=== PATIENT | male | born 1995 | race Caucasian/White ===

== ENCOUNTER 2016-06-18 12:57 | Emergency (ER) | payer OTHER, MEDICAID ==
[2016-06-18 14:18] LABS: BASO % 0.2 % (0.0-1.0); EOS # 0.2 K/mm3 (0.0-0.50); EOS % 0.9 % (0.0-3.0); LARGE UNSTAINED CELL # 0.3 K/mm3 (0.0-0.4); LARGE UNSTAINED CELL % 1.6 % (0.0-4.0); LYMPH # 1.4 K/mm3 (1.5-6.5); LYMPH % 7.7 % (24.0-44.0); MEAN CORPUSCULAR HEMOGLOBIN 31.1 pg (27.0-33.0); MEAN CORPUSCULAR HGB CONC 34.8 g/dl (32.0-36.5); MEAN CORPUSCULAR VOLUME 89.5 fl (80.0-96.0); MONO % 5.5 % (0.0-5.0); NEUTROPHILS # 15.8 K/mm3 (1.8-7.7); NEUTROPHILS % 84.1 % (36.0-66.0); PLATELET COUNT, AUTOMATED 271 k/mm3 (150-450); RED CELL DISTRIBUTION WIDTH 12.5 % (11.5-14.5); WHITE BLOOD COUNT 18.7 K/mm3 (4.0-10.0)
[2016-06-18] MEDS ORDERED: ONDANSETRON 4 MG ORAL DISINTEGRATING TAB (S0181) As Ordered ONE (14:24)
[2016-06-18 14:51] LABS: ALBUMIN 4.3 GM/DL (3.2-5.2); ALBUMIN/GLOBULIN RATIO 1.16 (1.00-1.93); ALKALINE PHOSPHATASE 99 U/L (45-117); ALT/SGPT 34 U/L (12-78); ANION GAP 8 MEQ/L (8-16); AST/SGOT 21 U/L (15-37); BILIRUBIN,DIRECT 0.2 MG/DL (0.0-0.2); BILIRUBIN,TOTAL 0.6 MG/DL (0.2-1.0); BLOOD UREA NITROGEN 9 MG/DL (7-18); CALCIUM LEVEL 9.3 MG/DL (8.5-10.1); CARBON DIOXIDE LEVEL 27 MEQ/L (21-32); CHLORIDE LEVEL 107 MEQ/L (98-107); CREATININE FOR GFR 0.88 MG/DL (0.70-1.30); GLOMERULAR FILTRATION RATE > 60.0 (>60); GLUCOSE, FASTING 97 MG/DL (70-105); POTASSIUM SERUM 3.9 MEQ/L (3.5-5.1); SODIUM LEVEL 142 MEQ/L (136-145)
[2016-06-18] MEDS ORDERED: MORPHINE 4 MG/ML 1ML SYRINGE As Ordered ONE (15:07)
[2016-06-18] MEDS ORDERED: ISOVUE-370 76% 100ML VIAL (Q9967) As Ordered ONE (15:48)
--- NOTE | 2016-06-18 17:25 | REP ---
CT STUDY OF THE ABDOMEN AND PELVIS WITH IV BUT WITHOUT ORAL CONTRAST: HISTORY: Diverticulitis. CT CONTRAST DOSE: 100 mL of Isovue-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 The lung bases are clear. There is no evidence of pleural effusion. The liver and the spleen are normal in size and homogeneous in texture. No adrenal lesion is seen. Gallbladder and pancreas are unremarkable. No retroperitoneal mass or adenopathy is seen. The kidneys enhance symmetrically and are morphologically intact. A normal appendix is visible in the right lower quadrant. There is no evidence of abdominal mass or abscess. Seminal vesicles, urinary bladder and prostate are unremarkable. There are one or two loops of slightly prominent small bowel in the left mid abdomen of uncertain significance. No obstructive lesion is seen. Question ileus. Bone window settings show no bony destructive lesion. IMPRESSION: Nonspecific small bowel loops in the left central abdomen, question ileus. Otherwise negative CT abdomen and pelvis. Normal appendix seen. Signed by Sumanth Cortes MD 06/18/2016 06:57 P
--- NOTE | 2016-06-18 17:32 | EDDOCDS ---
Nurse's Notes [facility] Name: Chet Eden Age: 21 yrs Sex: Male : 1995 Arrival Date: 06/18/2016 Time: 12:57 Bed I5 / M5 Private MD: Raffaele Charles Diagnosis: Nausea and vomiting-likely viral gastroenteritis;Diarrhea, unspecified Presentation: 06/18 13:06 Presenting complaint: Patient states: he has had vomiting since last night and has kcs severe abdominal pain, head hurts, chest hurts and nausea. Adult Sepsis Screening: The patient does not have new or worsening altered mentation. Patient's respiratory rate is less than 22. Systolic blood pressure is greater than 100. Patient has a qSOFA score of 0- Negative Sepsis Screen. Suicide/Homicide risk assessment- the patient denies having any suicidal and/or homicidal ideations and does not present with any other emotional, behavioral or mental health complaints. Status: Patient is not a line service attendant or dependent. Transition of care: patient was not received from another setting of care. 13:06 Acuity: [place] Level 4 kcs 13:06 Method Of Arrival: Walkin/Carried/Asstd kcs Triage Assessment: 13:07 General: Appears uncomfortable, well developed, well nourished, well groomed, Behavior kcs is cooperative, pleasant. Pain: Location: upper abdomen Pain currently is 2 out of 10 on a pain scale. At worst was 10 out of 10 on a pain scale. HIV screening NA for this visit Offered previously. Neurological: Level of Consciousness is awake, alert. Respiratory: Airway is patent Respiratory effort is even, unlabored, Respiratory pattern is regular, symmetrical. GI: Reports cramping, diarrhea, nausea, vomiting. : Denies burning with urination, inability to void. Derm: Skin is intact, is healthy with good turgor, Skin is dry, Skin is normal. Historical: - Allergies: Amoxicillin (Hives); Children's Advil (Hives); - Home Meds: 1. none - PMHx: none; - PSHx: none; - Social history: Smoking status: Patient states former smoker of tobacco. No barriers to communication noted, The patient speaks fluent Turkish. - Family history: Not pertinent. - : The pt / caregiver states he / she is not on anticoagulants. Home medication list is obtained from the patient. - Exposure Risk Screening:: None identified. Screenin:49 Screening information is obtained from the patient. Fall risk: No risks identified. mb9 Assistance ADL's: requires no assistance with activities of daily living. Abuse/DV Screen: The patient / caregiver reports he/she is: not in a situation that causes fear, pain or injury. Nutritional screening: No deficits noted. Advance Directives: There is no active DNR order. home support is adequate. Assessment: 14:49 General: Appears uncomfortable, Behavior is cooperative. Pain: Location: anterior mb9 aspect of left lateral abdomen Pain currently is 5 out of 10 on a pain scale. Respiratory: Airway is patent Respiratory effort is even, unlabored. GI: Abdomen is obese. 15:00 General: Appears uncomfortable, pt transferred to [facility] and my care attempted IV x2 mk4 without success, pt states "get someone else in here, you are done" ...pt refuses to let me attempt IV again, diffuse abd pain onset yesterday with vomiting. 16:00 General: Appears in no apparent distress, returned from CT scan no new complaints . mk4 17:30 General: Appears in no apparent distress, Behavior is appropriate for age, cooperative. srm Pain: Pain currently is 2 out of 10 on a pain scale. EENT: No deficits noted. Cardiovascular: No deficits noted. GI: Bowel sounds present X 4 quads. Abd is soft X 4 quads. Vital Signs: 12:58 BP 165 / 80; Pulse 96; Resp 20 S; Temp 98.5(O); Pulse Ox 100% on R/A; Weight 131.54 kg gr2 (R); Height 6 ft. 0 in. (182.88 cm) (R); Pain 8/10; 17:30 BP 132 / 70; Pulse 87; Resp 18; Temp 100.4(O); Pulse Ox 99% ; srm 12:58 Body Mass Index 39.33 (131.54 kg, 182.88 cm) gr2 Vitals: 12:58 Log In Time: June 18, 2016 at 12:58. gr2 ED Course: 12:58 Patient visited by Manuel De Leon. gr2 12:58 Raffaele Charles is Private Physician. gr2 12:58 Patient moved to Waiting gr2 13:01 Patient visited by Manuel De Leon. gr2 13:01 Patient moved to Pre RCE gr2 13:07 Triage Initiated kcs 13:45 Patient moved to Triage 3 mb9 13:46 Patient moved to Pre RCE ar3 13:50 [facility] ar2 13:50 Tamra Jordan MD is Attending Physician. ar2 13:50 Patient visited by Remigio Vieira PA-C. ar2 13:50 Patient moved to Triage 3 mb9 14:05 Lipase Sent. ar3 14:05 Liver Profile Sent. ar3 14:05 MED Profile Sent. ar3 14:05 CBC with Diff Sent. ar3 14:22 Patient name changed from Chet\\S\\S\\S\\Eden\\S\\ to Chet\\S\\Kostas\\S\\Eden. EDMS 14:25 [facility] Payment Agreement was scanned into [employer] and attached to record. pm4 14:31 Patient moved to TR1 ar3 14:31 Patient moved to Triage 3 ar3 14:32 Patient moved to TR1 ar3 14:48 GATS (NEGATIVE STREP SCREEN) Sent. mb9 14:49 The patient / caregiver is instructed regarding the plan of care and ED course. mb9 14:56 Patient moved to I5 / M5 bcj 15:04 Patient visited by Mercedes Lundberg RN. mk4 15:37 Inserted saline lock: 20 gauge in right antecubital area. srm 15:38 Patient visited by Mary Ramos RN. srm 16:19 Patient visited by Mercedes Lundberg RN. mk4 16:[address] mk4 16:19 Patient moved to I5 / M5 mk4 16:51 Patient visited by Mercedes Lundberg, MUNDO. mk4 17:07 Saman Giang PA is Referral Physician. ar2 17:30 Discontinued lock intact, bleeding controlled, pressure dressing applied, No srm redness/swelling at site. No procedures done that require assistance. Administered Medications: 14:34 Drug: Ondansetron ODT 4 mg [ondansetron 4 mg disintegrating tablet (1 tabs)] Route: PO; mb9 15:43 Drug: morphine 4 mg [morphine 4 mg/mL intravenous cartridge (1 mL)] Route: IVP; Site: mk4 right antecubital; 15:44 Drug: NS 0.9% 1000 ml [sodium chloride 0.9 % intravenous solution] Route: IV; Rate: mk4 bolus; Site: right antecubital; Intake: 17:30 IV: 400.00ml (NS); Total: 400.00ml. srm Order Results: Lab Order: CBC with Diff; SPEC'M 06/18/16 14:05 Test: WHITE BLOOD COUNT; Value: 18.7; Range: 4.0-10.0; Abnormal: Above high normal; Units: K/mm3; Status: F Test: RED BLOOD COUNT; Value: 4.75; Range: 4.30-6.10; Units: M/mm3; Status: F Test: HEMOGLOBIN; Value: 14.8; Range: 14.0-18.0; Units: g/dl; Status: F Test: HEMATOCRIT; Value: 42.5; Range: 42.0-52.0; Units: %; Status: F Test: MEAN CORPUSCULAR VOLUME; Value: 89.5; Range: 80.0-96.0; Units: fl; Status: F Test: MEAN CORPUSCULAR HEMOGLOBIN; Value: 31.1; Range: 27.0-33.0; Units: pg; Status: F Test: MEAN CORPUSCULAR HGB CONC; Value: 34.8; Range: 32.0-36.5; Units: g/dl; Status: F Test: RED CELL DISTRIBUTION WIDTH; Value: 12.5; Range: 11.5-14.5; Units: %; Status: F Test: PLATELET COUNT, AUTOMATED; Value: 271; Range: 150-450; Units: k/mm3; Status: F Test: NEUTROPHILS %; Value: 84.1; Range: 36.0-66.0; Abnormal: Above high normal; Units: %; Status: F Test: LYMPH %; Value: 7.7; Range: 24.0-44.0; Abnormal: Below low normal; Units: %; Status: F Test: MONO %; Value: 5.5; Range: 0.0-5.0; Abnormal: Above high normal; Units: %; Status: F Test: EOS %; Value: 0.9; Range: 0.0-3.0; Units: %; Status: F Test: BASO %; Value: 0.2; Range: 0.0-1.0; Units: %; Status: F Test: LARGE UNSTAINED CELL %; Value: 1.6; Range: 0.0-4.0; Units: %; Status: F Test: NEUTROPHILS #; Value: 15.8; Range: 1.8-7.7; Abnormal: Above high normal; Units: K/mm3; Status: F Test: LYMPH #; Value: 1.4; Range: 1.5-6.5; Abnormal: Below low normal; Units: K/mm3; Status: F Test: MONO #; Value: 1.0; Range: 0.0-0.8; Abnormal: Above high normal; Units: K/mm3; Status: F Test: EOS #; Value: 0.2; Range: 0.0-0.50; Units: K/mm3; Status: F Test: BASO #; Value: 0.0; Range: 0.0-0.2; Units: K/mm3; Status: F Test: LARGE UNSTAINED CELL #; Value: 0.3; Range: 0.0-0.4; Units: K/mm3; Status: F Lab Order: MED Profile; SPEC'M 06/18/16 14:05 Test: GLUCOSE, FASTING; Value: 97; Range: 70-105; Units: MG/DL; Status: F Test: BLOOD UREA NITROGEN; Value: 9; Range: 7-18; Units: MG/DL; Status: F Test: CREATININE FOR GFR; Value: 0.88; Range: 0.70-1.30; Units: MG/DL; Status: F Test: GLOMERULAR FILTRATION RATE; Value: > 60.0; Range: >60; Status: F Test: SODIUM LEVEL; Value: 142; Range: 136-145; Units: MEQ/L; Status: F Test: POTASSIUM SERUM; Value: 3.9; Range: 3.5-5.1; Units: MEQ/L; Status: F Test: CHLORIDE LEVEL; Value: 107; Range: 98-107; Units: MEQ/L; Status: F Test: CARBON DIOXIDE LEVEL; Value: 27; Range: 21-32; Units: MEQ/L; Status: F Test: ANION GAP; Value: 8; Range: 8-16; Units: MEQ/L; Status: F Test: CALCIUM LEVEL; Value: 9.3; Range: 8.5-10.1; Units: MG/DL; Status: F Test Note: ; Units are mL/min/1.73 m2 Chronic Kidney Disease Staging per NKF: Stage I & II GFR >=60 Normal to Mildly Decreased Stage III GFR 30-59 Moderately Decreased Stage IV GFR 15-29 Severely Decreased Stage V GFR <15 Very Little GFR Left ESRD GFR <15 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 Lab Order: Liver Profile; SPEC'M 06/18/16 14:05 Test: AST/SGOT; Value: 21; Range: 15-37; Units: U/L; Status: F Test: ALT/SGPT; Value: 34; Range: 12-78; Units: U/L; Status: F Test: ALKALINE PHOSPHATASE; Value: 99; Range: 45-117; Units: U/L; Status: F Test: BILIRUBIN,TOTAL; Value: 0.6; Range: 0.2-1.0; Units: MG/DL; Status: F Test: BILIRUBIN,DIRECT; Value: 0.2; Range: 0.0-0.2; Units: MG/DL; Status: F Test: TOTAL PROTEIN; Value: 8.0; Range: 6.4-8.2; Units: GM/DL; Status: F Test: ALBUMIN; Value: 4.3; Range: 3.2-5.2; Units: GM/DL; Status: F Test: ALBUMIN/GLOBULIN RATIO; Value: 1.16; Range: 1.00-1.93; Status: F Lab Order: Lipase; SPEC'M 06/18/16 14:05 Test: LIPASE; Value: 76; Range: 73-393; Units: U/L; Status: F Outcome: 17:07 Discharge ordered by Provider. ar2 17:30 Discharge Assessment: Patient awake, alert and oriented x 3. No cognitive and/or srm functional deficits noted. Patient verbalized understanding of disposition instructions. patient administered narcotics - yes. Pt provided with safe discharge. The following High Risk Discharge criteria are identified: None. Discharged to home ambulatory, with family. Condition: good Condition: stable. Property sent home with patient. 17:31 Discharge instructions given to patient, Instructed on discharge instructions, follow srm up and referral plans. medication usage, diet, Demonstrated understanding of instructions, medications, Pt was receptive of discharge instructions/ teaching. Prescriptions given X 1. CT Study completed. 17:31 Patient left the ED. srm Signatures: Dispatcher [employer] EDRenata Dorantes, RN RN Reagan Grace, MUNDO RN Mary Morales RN RN srm Remigio Vieira, PAStacey PA-C ar2 Sammie Neumann, ADDICTIONS COUNSELOR ASSISTANT ADDICTIONS COUNSELOR ASSISTANT ar3 Manuel De Leon gr2 Mercedes Lundberg RN RN 4 Jeremías Mujica RN RN mb9 Saman Gonzalez, Reg Reg pm4 MTDD
--- NOTE | 2016-06-18 17:32 | EDDOCDS ---
Physician Documentation [facility] Name: Chet Eden Age: 21 yrs Sex: Male : 1995 Arrival Date: 06/18/2016 Time: 12:57 Bed I5 / M5 Private MD: Raffaele Charles Disposition: 06/18/16 17:07 Discharged to Home/Self Care. Impression: Nausea and vomiting - likely viral gastroenteritis, Diarrhea, unspecified. - Condition is Stable. - Discharge Instructions: Viral Gastroenteritis. - Prescriptions for Bentyl 20 mg Oral Tablet - take 1 tablet by ORAL route every 6 hours As needed; 20 tablet. ZOFRAN ODT 4 mg - dissolve 1 tablet by ORAL route 4 times per day As needed do not chew, do not swallow whole; 10 tablet. - Medication Reconciliation, Local Pharmacy Hours form. - Follow up: Saman Giang PA; When: 2 - 3 days; Reason: Recheck today's complaints. Follow up: Emergency Department; When: As needed; Reason: Fever > 102F, Worsening of conditions. - Problem is new. - Symptoms have improved. Historical: - Allergies: Amoxicillin (Hives); Children's Advil (Hives); - Home Meds: 1. none - PMHx: none; - PSHx: none; - Social history: Smoking status: Patient states former smoker of tobacco. No barriers to communication noted, The patient speaks fluent Portuguese. - Family history: Not pertinent. - : The pt / caregiver states he / she is not on anticoagulants. Home medication list is obtained from the patient. - Exposure Risk Screening:: None identified. Vital Signs: 06/18 12:58 BP 165 / 80; Pulse 96; Resp 20 S; Temp 98.5(O); Pulse Ox 100% on R/A; Weight 131.54 kg gr2 / 290 lbs (R); Height 6 ft. 0 in. (182.88 cm) (R); Pain 8/10; 17:30 BP 132 / 70; Pulse 87; Resp 18; Temp 100.4(O); Pulse Ox 99% ; srm 12:58 Body Mass Index 39.33 (131.54 kg, 182.88 cm) gr2 MDM: 13:56 Strep Screen, Nursing ordered. ar2 13:56 Ondansetron ODT Oral Disintegrating Tablet 4 mg PO once ordered. ar2 13:56 Fluid Challenge ordered. ar2 13:57 CBC with Diff Ordered. EDMS 13:58 MED Profile Ordered. EDMS 13:58 Liver Profile Ordered. EDMS 13:58 Lipase Ordered. EDMS 14:25 Financial registration complete. pm4 14:25 [facility] Payment Agreement was scanned into [employer] and attached to record. pm4 14:43 GATS (NEGATIVE STREP SCREEN) Ordered. EDMS 14:55 CBC with Diff Reviewed. ar2 14:55 MED Profile Reviewed. ar2 14:55 Liver Profile Reviewed. ar2 14:55 Lipase Reviewed. ar2 14:56 IV Saline Lock ordered. ar2 14:59 CT ABD & PELVIS: IV Contrast Only Ordered. EDMS 14:59 NS 0.9% 1000 ml IV at bolus once ordered. ar2 14:59 morphine 4 mg IVP once ordered. ar2 Administered Medications: 14:34 Drug: Ondansetron ODT 4 mg [ondansetron 4 mg disintegrating tablet (1 tabs)] Route: PO; mb9 15:43 Drug: morphine 4 mg [morphine 4 mg/mL intravenous cartridge (1 mL)] Route: IVP; Site: mk4 right antecubital; 15:44 Drug: NS 0.9% 1000 ml [sodium chloride 0.9 % intravenous solution] Route: IV; Rate: mk4 bolus; Site: right antecubital; Signatures: Dispatcher [employer] EDMS Renata Gooden RN RN kcs Michelson, Staci, RN RN [facility] Remigio Vieira, LILY PAStacey ar2 Mercedes Lundberg RN RN mk4 Saman Gonzalez, Reg Reg pm4 Jeremías Mujica RN mb9 The chart was reviewed and I authenticate all verbal orders and agree with the evaluation and treatment provided.Attachments: 14:25 [facility] Payment Agreement pm4 MTDD
--- NOTE | 2016-06-20 18:33 | EDDOCDS ---
Physician Documentation [facility] Name: Chet Eden Age: 21 yrs Sex: Male : 1995 Arrival Date: 06/18/2016 Time: 12:57 Bed I5 / M5 Private MD: Raffaele Charles Disposition: 06/18/16 17:07 Discharged to Home/Self Care. Impression: Nausea and vomiting - likely viral gastroenteritis, Diarrhea, unspecified. - Condition is Stable. - Discharge Instructions: Viral Gastroenteritis. - Prescriptions for Bentyl 20 mg Oral Tablet - take 1 tablet by ORAL route every 6 hours As needed; 20 tablet. ZOFRAN ODT 4 mg - dissolve 1 tablet by ORAL route 4 times per day As needed do not chew, do not swallow whole; 10 tablet. - Medication Reconciliation, Local Pharmacy Hours form. - Follow up: Saman Giang PA; When: 2 - 3 days; Reason: Recheck today's complaints. Follow up: Emergency Department; When: As needed; Reason: Fever > 102F, Worsening of conditions. - Problem is new. - Symptoms have improved. Historical: - Allergies: Amoxicillin (Hives); Children's Advil (Hives); - Home Meds: 1. none - PMHx: none; - PSHx: none; - Social history: Smoking status: Patient states former smoker of tobacco. No barriers to communication noted, The patient speaks fluent French. - Family history: Not pertinent. - : The pt / caregiver states he / she is not on anticoagulants. Home medication list is obtained from the patient. - Exposure Risk Screening:: None identified. Vital Signs: 06/18 12:58 BP 165 / 80; Pulse 96; Resp 20 S; Temp 98.5(O); Pulse Ox 100% on R/A; Weight 131.54 kg gr2 / 290 lbs (R); Height 6 ft. 0 in. (182.88 cm) (R); Pain 8/10; 17:30 BP 132 / 70; Pulse 87; Resp 18; Temp 100.4(O); Pulse Ox 99% ; srm 12:58 Body Mass Index 39.33 (131.54 kg, 182.88 cm) gr2 MDM: 13:56 Strep Screen, Nursing ordered. ar2 13:56 Ondansetron ODT Oral Disintegrating Tablet 4 mg PO once ordered. ar2 13:56 Fluid Challenge ordered. ar2 13:57 CBC with Diff Ordered. EDMS 13:58 MED Profile Ordered. EDMS 13:58 Liver Profile Ordered. EDMS 13:58 Lipase Ordered. EDMS 14:25 Financial registration complete. pm4 14:25 [facility] Payment Agreement was scanned into [employer] and attached to record. pm4 14:43 GATS (NEGATIVE STREP SCREEN) Ordered. EDMS 14:55 CBC with Diff Reviewed. ar2 14:55 MED Profile Reviewed. ar2 14:55 Liver Profile Reviewed. ar2 14:55 Lipase Reviewed. ar2 14:56 IV Saline Lock ordered. ar2 14:59 CT ABD & PELVIS: IV Contrast Only Ordered. EDMS 14:59 NS 0.9% 1000 ml IV at bolus once ordered. ar2 14:59 morphine 4 mg IVP once ordered. ar2 06/19 11:07 T-Sheet-- Draft Copy was scanned into [employer] and attached to record. gb 11:07 Radiology Report was scanned into [employer] and attached to record. gb Administered Medications: 06/18 14:34 Drug: Ondansetron ODT 4 mg [ondansetron 4 mg disintegrating tablet (1 tabs)] Route: PO; mb9 15:43 Drug: morphine 4 mg [morphine 4 mg/mL intravenous cartridge (1 mL)] Route: IVP; Site: mk4 right antecubital; 15:44 Drug: NS 0.9% 1000 ml [sodium chloride 0.9 % intravenous solution] Route: IV; Rate: mk4 bolus; Site: right antecubital; Signatures: Dispatcher [employer] EDMS Renata Gooden RN RN [facility] Mary Ramos RN RN [facility] Elenita Velazquez, Reg Reg gb Remigio Vieira, PAStacey PAStacey ar2 Mercedes Lundberg RN RN mk4 Saman Gonzalez, Reg Reg pm4 Jeremías Mujica RN mb9 The chart was reviewed and I authenticate all verbal orders and agree with the evaluation and treatment provided.Attachments: 14:25 [facility] Payment Agreement pm4 06/19 11:07 T-Sheet-- Draft Copy gb Chart Complete MTDD
--- NOTE | 2016-06-20 18:33 | EDDOCDS ---
Physician Documentation [facility] Name: Chet Eden Age: 21 yrs Sex: Male : 1995 Arrival Date: 06/18/2016 Time: 12:57 Bed I5 / M5 Private MD: Raffaele Charles Disposition: 06/18/16 17:07 Discharged to Home/Self Care. Impression: Nausea and vomiting - likely viral gastroenteritis, Diarrhea, unspecified. - Condition is Stable. - Discharge Instructions: Viral Gastroenteritis. - Prescriptions for Bentyl 20 mg Oral Tablet - take 1 tablet by ORAL route every 6 hours As needed; 20 tablet. ZOFRAN ODT 4 mg - dissolve 1 tablet by ORAL route 4 times per day As needed do not chew, do not swallow whole; 10 tablet. - Medication Reconciliation, Local Pharmacy Hours form. - Follow up: Saman Giang PA; When: 2 - 3 days; Reason: Recheck today's complaints. Follow up: Emergency Department; When: As needed; Reason: Fever > 102F, Worsening of conditions. - Problem is new. - Symptoms have improved. Historical: - Allergies: Amoxicillin (Hives); Children's Advil (Hives); - Home Meds: 1. none - PMHx: none; - PSHx: none; - Social history: Smoking status: Patient states former smoker of tobacco. No barriers to communication noted, The patient speaks fluent French. - Family history: Not pertinent. - : The pt / caregiver states he / she is not on anticoagulants. Home medication list is obtained from the patient. - Exposure Risk Screening:: None identified. Vital Signs: 06/18 12:58 BP 165 / 80; Pulse 96; Resp 20 S; Temp 98.5(O); Pulse Ox 100% on R/A; Weight 131.54 kg gr2 / 290 lbs (R); Height 6 ft. 0 in. (182.88 cm) (R); Pain 8/10; 17:30 BP 132 / 70; Pulse 87; Resp 18; Temp 100.4(O); Pulse Ox 99% ; srm 12:58 Body Mass Index 39.33 (131.54 kg, 182.88 cm) gr2 MDM: 13:56 Strep Screen, Nursing ordered. ar2 13:56 Ondansetron ODT Oral Disintegrating Tablet 4 mg PO once ordered. ar2 13:56 Fluid Challenge ordered. ar2 13:57 CBC with Diff Ordered. EDMS 13:58 MED Profile Ordered. EDMS 13:58 Liver Profile Ordered. EDMS 13:58 Lipase Ordered. EDMS 14:25 Financial registration complete. pm4 14:25 [facility] Payment Agreement was scanned into [employer] and attached to record. pm4 14:43 GATS (NEGATIVE STREP SCREEN) Ordered. EDMS 14:55 CBC with Diff Reviewed. ar2 14:55 MED Profile Reviewed. ar2 14:55 Liver Profile Reviewed. ar2 14:55 Lipase Reviewed. ar2 14:56 IV Saline Lock ordered. ar2 14:59 CT ABD & PELVIS: IV Contrast Only Ordered. EDMS 14:59 NS 0.9% 1000 ml IV at bolus once ordered. ar2 14:59 morphine 4 mg IVP once ordered. ar2 06/19 11:07 T-Sheet-- Draft Copy was scanned into [employer] and attached to record. gb 11:07 Radiology Report was scanned into [employer] and attached to record. gb Administered Medications: 06/18 14:34 Drug: Ondansetron ODT 4 mg [ondansetron 4 mg disintegrating tablet (1 tabs)] Route: PO; mb9 15:43 Drug: morphine 4 mg [morphine 4 mg/mL intravenous cartridge (1 mL)] Route: IVP; Site: mk4 right antecubital; 15:44 Drug: NS 0.9% 1000 ml [sodium chloride 0.9 % intravenous solution] Route: IV; Rate: mk4 bolus; Site: right antecubital; Signatures: Dispatcher [employer] EDMS Renata Gooden RN RN [facility] Mary Ramos RN RN [facility] Elenita Velazquez, Reg Reg gb Remigio Vieira, PAStacey PAStacey ar2 Mercedes Lundberg RN RN mk4 Saman Gonzalez, Reg Reg pm4 Jeremías Mujica RN mb9 The chart was reviewed and I authenticate all verbal orders and agree with the evaluation and treatment provided.Attachments: 14:25 [facility] Payment Agreement pm4 06/19 11:07 T-Sheet-- Draft Copy gb Chart Complete MTDD
--- NOTE | 2016-06-20 18:33 | EDDOCDS ---
Nurse's Notes [facility] Name: Chet Eden Age: 21 yrs Sex: Male : 1995 Arrival Date: 06/18/2016 Time: 12:57 Bed I5 / M5 Private MD: Raffaele Charles Diagnosis: Nausea and vomiting-likely viral gastroenteritis;Diarrhea, unspecified Presentation: 06/18 13:06 Presenting complaint: Patient states: he has had vomiting since last night and has kcs severe abdominal pain, head hurts, chest hurts and nausea. Adult Sepsis Screening: The patient does not have new or worsening altered mentation. Patient's respiratory rate is less than 22. Systolic blood pressure is greater than 100. Patient has a qSOFA score of 0- Negative Sepsis Screen. Suicide/Homicide risk assessment- the patient denies having any suicidal and/or homicidal ideations and does not present with any other emotional, behavioral or mental health complaints. Status: Patient is not a hvac/r service technician or dependent. Transition of care: patient was not received from another setting of care. 13:06 Acuity: [place] Level 4 kcs 13:06 Method Of Arrival: Walkin/Carried/Asstd kcs Triage Assessment: 13:07 General: Appears uncomfortable, well developed, well nourished, well groomed, Behavior kcs is cooperative, pleasant. Pain: Location: upper abdomen Pain currently is 2 out of 10 on a pain scale. At worst was 10 out of 10 on a pain scale. HIV screening NA for this visit Offered previously. Neurological: Level of Consciousness is awake, alert. Respiratory: Airway is patent Respiratory effort is even, unlabored, Respiratory pattern is regular, symmetrical. GI: Reports cramping, diarrhea, nausea, vomiting. : Denies burning with urination, inability to void. Derm: Skin is intact, is healthy with good turgor, Skin is dry, Skin is normal. Historical: - Allergies: Amoxicillin (Hives); Children's Advil (Hives); - Home Meds: 1. none - PMHx: none; - PSHx: none; - Social history: Smoking status: Patient states former smoker of tobacco. No barriers to communication noted, The patient speaks fluent Telugu. - Family history: Not pertinent. - : The pt / caregiver states he / she is not on anticoagulants. Home medication list is obtained from the patient. - Exposure Risk Screening:: None identified. Screenin:49 Screening information is obtained from the patient. Fall risk: No risks identified. mb9 Assistance ADL's: requires no assistance with activities of daily living. Abuse/DV Screen: The patient / caregiver reports he/she is: not in a situation that causes fear, pain or injury. Nutritional screening: No deficits noted. Advance Directives: There is no active DNR order. home support is adequate. Assessment: 14:49 General: Appears uncomfortable, Behavior is cooperative. Pain: Location: anterior mb9 aspect of left lateral abdomen Pain currently is 5 out of 10 on a pain scale. Respiratory: Airway is patent Respiratory effort is even, unlabored. GI: Abdomen is obese. 15:00 General: Appears uncomfortable, pt transferred to [facility] and my care attempted IV x2 mk4 without success, pt states "get someone else in here, you are done" ...pt refuses to let me attempt IV again, diffuse abd pain onset yesterday with vomiting. 16:00 General: Appears in no apparent distress, returned from CT scan no new complaints . mk4 17:30 General: Appears in no apparent distress, Behavior is appropriate for age, cooperative. srm Pain: Pain currently is 2 out of 10 on a pain scale. EENT: No deficits noted. Cardiovascular: No deficits noted. GI: Bowel sounds present X 4 quads. Abd is soft X 4 quads. Vital Signs: 12:58 BP 165 / 80; Pulse 96; Resp 20 S; Temp 98.5(O); Pulse Ox 100% on R/A; Weight 131.54 kg gr2 (R); Height 6 ft. 0 in. (182.88 cm) (R); Pain 8/10; 17:30 BP 132 / 70; Pulse 87; Resp 18; Temp 100.4(O); Pulse Ox 99% ; srm 12:58 Body Mass Index 39.33 (131.54 kg, 182.88 cm) gr2 Vitals: 12:58 Log In Time: June 18, 2016 at 12:58. gr2 ED Course: 12:58 Patient visited by Manuel De Leon. gr2 12:58 Raffaele Charles is Private Physician. gr2 12:58 Patient moved to Waiting gr2 13:01 Patient visited by Manuel De Leon. gr2 13:01 Patient moved to Pre RCE gr2 13:07 Triage Initiated kcs 13:45 Patient moved to Triage 3 mb9 13:46 Patient moved to Pre RCE ar3 13:50 Remigio Vieira PA-C is PHCP. ar2 13:50 Tamra Jordan MD is Attending Physician. ar2 13:50 Patient visited by Remigio Vieira PA-C. ar2 13:50 Patient moved to Triage 3 mb9 14:05 Lipase Sent. ar3 14:05 Liver Profile Sent. ar3 14:05 MED Profile Sent. ar3 14:05 CBC with Diff Sent. ar3 14:22 Patient name changed from Chet\\S\\S\\S\\Eden\\S\\ to Chet\\S\\Kostas\\S\\Eden. EDMS 14:25 [facility] Payment Agreement was scanned into [employer] and attached to record. pm4 14:31 Patient moved to TR1 ar3 14:31 Patient moved to Triage 3 ar3 14:32 Patient moved to TR1 ar3 14:48 GATS (NEGATIVE STREP SCREEN) Sent. mb9 14:49 The patient / caregiver is instructed regarding the plan of care and ED course. mb9 14:56 Patient moved to I5 / M5 bcj 15:04 Patient visited by Mercedse Lundberg RN. mk4 15:37 Inserted saline lock: 20 gauge in right antecubital area. srm 15:38 Patient visited by Mary Ramos, MUNDO. srm 16:19 Patient visited by Mercedes Lundberg RN. mk4 16:[address] mk4 16:19 Patient moved to I5 / M5 mk4 16:51 Patient visited by Mercedes Lundberg, RN. mk4 17:07 Saman Giang PA is Referral Physician. ar2 17:30 Discontinued lock intact, bleeding controlled, pressure dressing applied, No srm redness/swelling at site. No procedures done that require assistance. 18:10 CT ABD & PELVIS: IV Contrast Only Returned. EDMS 06/19 11:07 T-Sheet-- Draft Copy was scanned into [employer] and attached to record. gb 11:07 Radiology Report was scanned into [employer] and attached to record. gb Administered Medications: 06/18 14:34 Drug: Ondansetron ODT 4 mg [ondansetron 4 mg disintegrating tablet (1 tabs)] Route: PO; mb9 15:43 Drug: morphine 4 mg [morphine 4 mg/mL intravenous cartridge (1 mL)] Route: IVP; Site: mk4 right antecubital; 15:44 Drug: NS 0.9% 1000 ml [sodium chloride 0.9 % intravenous solution] Route: IV; Rate: mk4 bolus; Site: right antecubital; Intake: 17:30 IV: 400.00ml (NS); Total: 400.00ml. srm Order Results: Lab Order: CBC with Diff; SPEC'M 06/18/16 14:05 Test: WHITE BLOOD COUNT; Value: 18.7; Range: 4.0-10.0; Abnormal: Above high normal; Units: K/mm3; Status: F Test: RED BLOOD COUNT; Value: 4.75; Range: 4.30-6.10; Units: M/mm3; Status: F Test: HEMOGLOBIN; Value: 14.8; Range: 14.0-18.0; Units: g/dl; Status: F Test: HEMATOCRIT; Value: 42.5; Range: 42.0-52.0; Units: %; Status: F Test: MEAN CORPUSCULAR VOLUME; Value: 89.5; Range: 80.0-96.0; Units: fl; Status: F Test: MEAN CORPUSCULAR HEMOGLOBIN; Value: 31.1; Range: 27.0-33.0; Units: pg; Status: F Test: MEAN CORPUSCULAR HGB CONC; Value: 34.8; Range: 32.0-36.5; Units: g/dl; Status: F Test: RED CELL DISTRIBUTION WIDTH; Value: 12.5; Range: 11.5-14.5; Units: %; Status: F Test: PLATELET COUNT, AUTOMATED; Value: 271; Range: 150-450; Units: k/mm3; Status: F Test: NEUTROPHILS %; Value: 84.1; Range: 36.0-66.0; Abnormal: Above high normal; Units: %; Status: F Test: LYMPH %; Value: 7.7; Range: 24.0-44.0; Abnormal: Below low normal; Units: %; Status: F Test: MONO %; Value: 5.5; Range: 0.0-5.0; Abnormal: Above high normal; Units: %; Status: F Test: EOS %; Value: 0.9; Range: 0.0-3.0; Units: %; Status: F Test: BASO %; Value: 0.2; Range: 0.0-1.0; Units: %; Status: F Test: LARGE UNSTAINED CELL %; Value: 1.6; Range: 0.0-4.0; Units: %; Status: F Test: NEUTROPHILS #; Value: 15.8; Range: 1.8-7.7; Abnormal: Above high normal; Units: K/mm3; Status: F Test: LYMPH #; Value: 1.4; Range: 1.5-6.5; Abnormal: Below low normal; Units: K/mm3; Status: F Test: MONO #; Value: 1.0; Range: 0.0-0.8; Abnormal: Above high normal; Units: K/mm3; Status: F Test: EOS #; Value: 0.2; Range: 0.0-0.50; Units: K/mm3; Status: F Test: BASO #; Value: 0.0; Range: 0.0-0.2; Units: K/mm3; Status: F Test: LARGE UNSTAINED CELL #; Value: 0.3; Range: 0.0-0.4; Units: K/mm3; Status: F Lab Order: MED Profile; SPEC'M 06/18/16 14:05 Test: GLUCOSE, FASTING; Value: 97; Range: 70-105; Units: MG/DL; Status: F Test: BLOOD UREA NITROGEN; Value: 9; Range: 7-18; Units: MG/DL; Status: F Test: CREATININE FOR GFR; Value: 0.88; Range: 0.70-1.30; Units: MG/DL; Status: F Test: GLOMERULAR FILTRATION RATE; Value: > 60.0; Range: >60; Status: F Test: SODIUM LEVEL; Value: 142; Range: 136-145; Units: MEQ/L; Status: F Test: POTASSIUM SERUM; Value: 3.9; Range: 3.5-5.1; Units: MEQ/L; Status: F Test: CHLORIDE LEVEL; Value: 107; Range: 98-107; Units: MEQ/L; Status: F Test: CARBON DIOXIDE LEVEL; Value: 27; Range: 21-32; Units: MEQ/L; Status: F Test: ANION GAP; Value: 8; Range: 8-16; Units: MEQ/L; Status: F Test: CALCIUM LEVEL; Value: 9.3; Range: 8.5-10.1; Units: MG/DL; Status: F Test Note: ; Units are mL/min/1.73 m2 Chronic Kidney Disease Staging per NKF: Stage I & II GFR >=60 Normal to Mildly Decreased Stage III GFR 30-59 Moderately Decreased Stage IV GFR 15-29 Severely Decreased Stage V GFR <15 Very Little GFR Left ESRD GFR <15 on BOXING PROMOTER Lab Order: Liver Profile; SPEC'M 06/18/16 14:05 Test: AST/SGOT; Value: 21; Range: 15-37; Units: U/L; Status: F Test: ALT/SGPT; Value: 34; Range: 12-78; Units: U/L; Status: F Test: ALKALINE PHOSPHATASE; Value: 99; Range: 45-117; Units: U/L; Status: F Test: BILIRUBIN,TOTAL; Value: 0.6; Range: 0.2-1.0; Units: MG/DL; Status: F Test: BILIRUBIN,DIRECT; Value: 0.2; Range: 0.0-0.2; Units: MG/DL; Status: F Test: TOTAL PROTEIN; Value: 8.0; Range: 6.4-8.2; Units: GM/DL; Status: F Test: ALBUMIN; Value: 4.3; Range: 3.2-5.2; Units: GM/DL; Status: F Test: ALBUMIN/GLOBULIN RATIO; Value: 1.16; Range: 1.00-1.93; Status: F Lab Order: Lipase; SPEC'M 06/18/16 14:05 Test: LIPASE; Value: 76; Range: 73-393; Units: U/L; Status: F Lab Order: GATS (NEGATIVE STREP SCREEN); SPEC'M 06/18/16 12:57 Test: GATS CULTURE (NEG STREP SCR); Value: GATS RESULT NEGATIVE FOR STREP PYOGENES (GROUP A); Status: F Radiology Order: CT ABD & PELVIS: IV Contrast Only Test: CT ABD & PELVIS: IV Contrast Only REASON FOR EXAMINATION: Diverticulitis; CT STUDY OF THE ABDOMEN AND PELVIS WITH IV BUT WITHOUT ORAL CONTRAST:; ; HISTORY: Diverticulitis.; ; CT CONTRAST DOSE: 100 mL of Isovue-370 is administered intravenously.; ; CT FINDINGS: 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 The lung bases are clear. There is no evidence of pleural effusion.; The liver and the spleen are normal in size and homogeneous in texture. No; adrenal lesion is seen. Gallbladder and pancreas are unremarkable. No; retroperitoneal mass or adenopathy is seen. The kidneys enhance symmetrically and; are morphologically intact. A normal appendix is visible in the right lower; quadrant. There is no evidence of abdominal mass or abscess. Seminal vesicles,; urinary bladder and prostate are unremarkable. There are one or two loops of; slightly prominent small bowel in the left mid abdomen of uncertain significance.; No obstructive lesion is seen. Question ileus. Bone window settings show no bony; destructive lesion.; ; IMPRESSION:; ; Nonspecific small bowel loops in the left central abdomen, question ileus.; Otherwise negative CT abdomen and pelvis. Normal appendix seen.; ; ; Signed by; Sumanth Cortes MD 06/18/2016 06:57 P; Outcome: 17:07 Discharge ordered by Provider. ar2 17:30 Discharge Assessment: Patient awake, alert and oriented x 3. No cognitive and/or srm functional deficits noted. Patient verbalized understanding of disposition instructions. patient administered narcotics - yes. Pt provided with safe discharge. The following High Risk Discharge criteria are identified: None. Discharged to home ambulatory, with family. Condition: good Condition: stable. Property sent home with patient. 17:31 Discharge instructions given to patient, Instructed on discharge instructions, follow srm up and referral plans. medication usage, diet, Demonstrated understanding of instructions, medications, Pt was receptive of discharge instructions/ teaching. Prescriptions given X 1. CT Study completed. 17:31 Patient left the ED. srm Signatures: Dispatcher [employer] EDMS Renata Gooden, Reagan Vieyra RN, RN RN bcj Michelson, Staci, RN RN srm Caroline, Elenita, Reg Reg gb Remigio Vieira, LILY PAGioC ar2 Sammie Neumann, MAYELA ASSOCIATE QUALITY ENGINEER ar3 Manuel De Leon gr2 Mercedes Lundberg RN RN mk4 Jeremías MujicaRN RN mb9 Saman Gonzalez, Reg Reg pm4 Chart Complete MTDD
== END 2016-06-18 17:31 | disposition home or self-care (01) ==
LOC: M ED 12:57
DX: A08.4 Viral intestinal infection, unspecified (principal); Z87.891 Personal history of nicotine dependence; Z88.0 Allergy status to penicillin; Z88.6 Allergy status to analgesic agent
CPT/HCPCS: 36415; 74177; 80048; 80076; 83690; 85025; 96374; 99284; Q9967

== ENCOUNTER → 2017-02-10 | Outpatient (CLI) | payer MEDICAID, OTHER | LOC: M WUC 10:21 | PROVIDERS: ATTEND Nurse Practitioner Family | DX: Z72.51 High risk heterosexual behavior (principal) ==

== ENCOUNTER → 2018-10-11 | Outpatient (REF) | payer OTHER, SELFPAY ==
[~2018-10-11] MED LIST: CLEO300C2 PO; PERC5TAB12 PO; PRED10TA2 PO
== END ==
LOC: M LAB REF 09:47
PROVIDERS: ATTEND Physician Assistant
DX: J03.90 Acute tonsillitis, unspecified (principal)

== ENCOUNTER 2018-10-15 19:16 | Emergency (ER) | payer OTHER, SELFPAY ==
[~2018-10-15] VITALS: Ht 185.4 cm; Wt 129.6 kg
[2018-10-15] MEDS ORDERED: ONDANSETRON 4 MG ORAL DISINTEGRATING TAB (Q0162 PER 1MG) PO ONE (20:00)
[2018-10-15] MEDS ORDERED: NORCO, ANEXSIA 5/325MG TABLET (HYDROcodone/ACETAMINOPHEN) PO ONE (20:00)
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
[2018-10-15] MEDS ORDERED: CLEO300C2 PO (21:28)
[2018-10-15] MEDS ORDERED: PERC5TAB12 PO (21:28)
[2018-10-15] MEDS ORDERED: PRED10TA2 PO (21:28)
[2018-10-15] MEDS ORDERED: OXYCODONE/APAP 5MG/325MG(BULK FOR ED) 1 TABLET PO ONE (21:30)
[2018-10-15] MEDS ORDERED: CLINDAMYCIN 150 MG CAP PO ONE (21:30)
[2018-10-15 21:42] VITALS: BP 150/88
--- NOTE | 2018-10-19 15:25 | ED PDOC ---
Post-Departure Follow-Up domonique weber and [facility] faxed formal report of ct max fac for fu Sofi Berry MD October 19, 2018 15:25
== END 2018-10-15 22:06 | disposition home or self-care (01) ==
LOC: M ED 19:16
DX: S02.32XA Fracture of orbital floor, left side, initial encounter for closed fracture (principal); S02.2XXA Fracture of nasal bones, initial encounter for closed fracture; Y04.8XXA Assault by other bodily force, initial encounter; Y92.89 Other specified places as the place of occurrence of the external cause; Z88.0 Allergy status to penicillin; Z88.8 Allergy status to other drugs, medicaments and biological substances
CPT/HCPCS: 70450; 70486; 99283; Q0162

== ENCOUNTER → 2021-10-03 | Outpatient (REF) | payer OTHER | LOC: M LAB REF 19:48 | PROVIDERS: ATTEND Physician Assistant Medical | DX: R05.9 Cough, unspecified (principal); R50.9 Fever, unspecified ==

== ENCOUNTER → 2022-09-09 | Outpatient (CLI) | payer OTHER ==
[2022-09-09 15:06] LABS: CK-MB VALUE MASS 1.1 NG/ML (<3.6)
[2022-09-09 15:09] LABS: FREE T4 0.95 NG/DL (0.89-1.76); THYROID STIMULATING HORMONE 0.973 uIU/ML (0.55-4.78)
[2022-09-09 15:20] LABS: BASO # 0.1 10^3/uL (0.0-0.2); BASO % 0.8 % (0.0-1.0); EOS # 0.4 10^3/uL (0.0-0.5); EOS % 4.9 % (0.0-3.0); HEMOGLOBIN 14.4 g/dl (13.5-17.5); LYMPH # 2.3 10^3/uL (1.5-5.0); LYMPH % 29.1 % (24.0-44.0); MEAN CORPUSCULAR HEMOGLOBIN 30.6 pg (27.0-33.0); MEAN CORPUSCULAR HGB CONC 32.7 g/dl (32.0-36.5); MEAN CORPUSCULAR VOLUME 93.4 fl (80.0-96.0); MONO # 0.9 10^3/uL (0.0-0.8); MONO % 11.3 % (2.0-8.0); NEUTROPHILS # 4.2 10^3/uL (1.5-8.5); NEUTROPHILS % 53.6 % (36.0-66.0); PLATELET COUNT, AUTOMATED 322 10^3/uL (150-450); RED BLOOD COUNT 4.71 10^6/uL (4.30-6.10); WHITE BLOOD COUNT 7.8 10^3/uL (4.0-10.0)
[2022-09-09 15:37] LABS: HEMOGLOBIN A1c 4.9 % (4.0-6.0)
[2022-09-09 16:03] LABS: ALBUMIN 4.2 G/DL (3.2-5.2); ALKALINE PHOSPHATASE 60 U/L (46-116); ALT/SGPT 34 U/L (7.0-40); AST/SGOT 25 U/L (<34); BILIRUBIN,TOTAL 0.4 MG/DL (0.3-1.2); BLOOD UREA NITROGEN 11 MG/DL (9-23); CALCIUM LEVEL 9.4 MG/DL (8.5-10.1); CARBON DIOXIDE LEVEL 30 MMOL/L (20-31); CHLORIDE LEVEL 107 MMOL/L (98-107); CHOLESTEROL LEVEL 134 MG/DL (<200); CHOLESTEROL RISK RATIO 3.63 (<5); CREATININE FOR GFR 0.94 MG/DL (0.70-1.30); GLOMERULAR FILTRATION RATE > 60.0 (>60); GLUCOSE, FASTING 86 MG/DL (60-100); HDL CHOLESTEROL 36.9 MG/DL (>40); LDL CHOLESTEROL 87.5 MG/DL (<100); NON-HDL-C 97.1 MG/DL; POTASSIUM SERUM 4.3 MMOL/L (3.5-5.1); SODIUM LEVEL 141 MMOL/L (136-145); TOTAL PROTEIN 7.3 G/DL (5.7-8.2); TRIGLYCERIDES LEVEL 48 MG/DL (<150)
[2022-09-09 16:14] LABS: MAGNESIUM LEVEL 1.9 MG/DL (1.8-2.4)
[2022-09-09 16:19] LABS: CPK CREATINE PHOSPHOKINASE 207 U/L (46-171); MB/CK RELATIVE INDEX 0.53 (< OR =4)
== END ==
LOC: M PLALAB 09:41
PROVIDERS: ATTEND Nurse Practitioner Family
DX: R07.89 Other chest pain (principal); Z13.220 Encounter for screening for lipoid disorders; Z13.1 Encounter for screening for diabetes mellitus

== ENCOUNTER 2022-12-08 18:29 | Emergency (ER) | payer OTHER ==
[~2022-12-08] VITALS: Ht 185.4 cm; Wt 118.4 kg
[2022-12-08] MEDS ORDERED: NS 1,000 ML IV ONE (20:15)
[2022-12-08 20:30] LABS: BASO % 0.5 % (0.0-1.0); EOS # 0.3 10^3/uL (0.0-0.5); EOS % 3.4 % (0.0-3.0); HEMATOCRIT 39.9 % (42.0-52.0); HEMOGLOBIN 13.2 g/dl (13.5-17.5); LYMPH # 2.8 10^3/uL (1.5-5.0); LYMPH % 34.2 % (24.0-44.0); MEAN CORPUSCULAR HEMOGLOBIN 30.6 pg (27.0-33.0); MEAN CORPUSCULAR HGB CONC 33.1 g/dl (32.0-36.5); MEAN CORPUSCULAR VOLUME 92.4 fl (80.0-96.0); MONO # 0.9 10^3/uL (0.0-0.8); MONO % 11.3 % (2.0-8.0); NEUTROPHILS # 4.1 10^3/uL (1.5-8.5); NEUTROPHILS % 50.5 % (36.0-66.0); PLATELET COUNT, AUTOMATED 281 10^3/uL (150-450); RED BLOOD COUNT 4.32 10^6/uL (4.30-6.10); WHITE BLOOD COUNT 8.1 10^3/uL (4.0-10.0)
[2022-12-08 20:47] LABS: INR 1.03; PARTIAL THROMBOPLASTIN TIME 28.2 SECONDS (24.8-34.2); PROTHROMBIN TIME 13.7 SECONDS (12.5-14.5)
[2022-12-08 20:48] LABS: LIPASE 24 U/L (12-53)
[2022-12-08 20:49] LABS: CK-MB VALUE MASS 3.5 NG/ML (<3.6)
[2022-12-08 20:50] LABS: ALBUMIN 3.7 G/DL (3.2-5.2); ALKALINE PHOSPHATASE 56 U/L (46-116); ALT/SGPT 30 U/L (7.0-40); AST/SGOT 21 U/L (<34); BILIRUBIN,DIRECT < 0.1 MG/DL (<0.4); BILIRUBIN,TOTAL 0.3 MG/DL (0.3-1.2); BLOOD UREA NITROGEN 16 MG/DL (9-23); CALCIUM LEVEL 8.5 MG/DL (8.5-10.1); CARBON DIOXIDE LEVEL 31 MMOL/L (20-31); CHLORIDE LEVEL 107 MMOL/L (98-107); CREATININE FOR GFR 1.08 MG/DL (0.70-1.30); GLOMERULAR FILTRATION RATE > 60.0 (>60); GLUCOSE, FASTING 70 MG/DL (60-100); POTASSIUM SERUM 3.9 MMOL/L (3.5-5.1); SODIUM LEVEL 143 MMOL/L (136-145); TOTAL PROTEIN 6.7 G/DL (5.7-8.2)
[2022-12-08 20:52] LABS: FREE T4 0.79 NG/DL (0.89-1.76); THYROID STIMULATING HORMONE 2.794 uIU/ML (0.55-4.78)
[2022-12-08 20:57] LABS: CPK CREATINE PHOSPHOKINASE 211 U/L (46-171); MB/CK RELATIVE INDEX 1.65 (< OR =4)
[2022-12-08 21:52] LABS: CK-MB VALUE MASS 3.1 NG/ML (<3.6)
[2022-12-08 21:53] LABS: MB/CK RELATIVE INDEX 1.67 (< OR =4)
[2022-12-08] MEDS ORDERED: HOLTER MONITOR XX ×2 (22:18→22:22)
[2022-12-08 22:30] VITALS: BP 144/79; TEMP 96.6; O2SAT 97
== END 2022-12-08 22:31 | disposition home or self-care (01) ==
LOC: M ED 18:29
DX: R07.89 Other chest pain (principal); R00.1 Bradycardia, unspecified; Z88.0 Allergy status to penicillin; Z88.6 Allergy status to analgesic agent

== ENCOUNTER → 2024-06-30 | Outpatient (CLI) | payer BC ==
[~2024-06-30] MED LIST changes: +HOLTER MONITOR XX
[2024-06-30 14:39] LABS: HEMATOCRIT 43.7 % (42.0-52.0); HEMOGLOBIN 14.5 g/dl (13.5-17.5); MEAN CORPUSCULAR HGB CONC 33.2 g/dl (32.0-36.5); MEAN CORPUSCULAR VOLUME 93.4 fl (80.0-96.0); PLATELET COUNT, AUTOMATED 318 10^3/uL (150-450); RED BLOOD COUNT 4.68 10^6/uL (4.30-6.10); WHITE BLOOD COUNT 8.8 10^3/uL (4.0-10.0)
[2024-06-30 15:15] LABS: ALBUMIN 4.4 G/DL (3.2-5.2); ALKALINE PHOSPHATASE 74 U/L (40-129); ALT/SGPT 27 U/L (7.0-40); AST/SGOT 27 U/L (<34); BILIRUBIN,TOTAL 0.6 MG/DL (0.3-1.2); BLOOD UREA NITROGEN 9 MG/DL (9-23); CALCIUM LEVEL 9.7 MG/DL (8.5-10.1); CARBON DIOXIDE LEVEL 31 MMOL/L (20-31); CHLORIDE LEVEL 104 MMOL/L (98-107); CHOLESTEROL LEVEL 149 MG/DL (<200); CHOLESTEROL RISK RATIO 4.16 (<5); GLOMERULAR FILTRATION RATE > 60.0 (>60); GLUCOSE, FASTING 83 MG/DL (60-100); HDL CHOLESTEROL 35.8 MG/DL (>40); NON-HDL-C 113.2 MG/DL; POTASSIUM SERUM 4.7 MMOL/L (3.5-5.1); SODIUM LEVEL 143 MMOL/L (136-145); TOTAL PROTEIN 7.8 G/DL (5.7-8.2); TRIGLYCERIDES LEVEL 96 MG/DL (<150)
== END ==
LOC: M PLALAB 12:08
PROVIDERS: ATTEND Registered Nurse
DX: Z13.220 Encounter for screening for lipoid disorders (principal)

== ENCOUNTER → 2024-07-28 | Outpatient (CLI) | payer BC | LOC: M PLALAB 09:34 | PROVIDERS: ATTEND Nurse Practitioner Family | DX: R68.82 Decreased libido (principal) ==